=== PATIENT | male | born 2000 | race Caucasian/White ===

== ENCOUNTER 2018-07-13 19:57 | Emergency (ER) | payer MEDICAID ==
[~2018-07-13] VITALS: Ht 144.8 cm; Wt 54.4 kg
[2018-07-13 20:14] VITALS: BP 124/83
== END 2018-07-13 21:51 | disposition home or self-care (01) ==
LOC: ER 19:57
DX: H10.32 Unspecified acute conjunctivitis, left eye (principal)
CPT/HCPCS: 99283; A4606; Z7610

== ENCOUNTER 2018-10-05 21:10 | Emergency (ER) | payer MEDICAID ==
[~2018-10-05] VITALS: Ht 165.1 cm; Wt 57.2 kg
[2018-10-05 21:22] VITALS: BP 128/77
[2018-10-05] MEDS ORDERED: FLUORESCEIN SODIUM OPHTH 1 EA STRIP ONE (21:35)
[2018-10-05] MEDS ORDERED: TETRACAINE HCL/PF 0.5% UD 2 ML BOTTLE ONE (21:36)
--- NOTE | 2018-10-05 21:49 | NUR ---
B QIETER, PAC IS AT THE BEDSIDE TRYING TO REMOVE A FOREIGN BODY FROM LEFT INNER EYE.
[2018-10-05] MEDS ORDERED: TETRACAINE HCL/PF 0.5% UD 2 ML BOTTLE LEFTEYE ONE (22:00)
[2018-10-05] MEDS ORDERED: FLUORESCEIN SODIUM OPHTH 1 EA STRIP OP ONE (22:00)
--- NOTE | 2018-10-05 22:03 | NUR ---
PT STATED THAT HE NORMALLY IS NOT ABLE TO SEE LONG DISTANCES OUT OF HIS LEFT EYE.
--- NOTE | 2018-10-05 22:14 | NUR ---
Patient discharged to home in stable condition. Written and verbal after care instructions given. Patient verbalizes understanding of instruction AND RX. PT AMBULATED OUT WITH A STEADY GAIT. SIMEON MCINTOSH TRANSLATED FOR PT. PT'S VSS. NAD NOTED.
== END 2018-10-05 22:18 | disposition home or self-care (01) ==
LOC: ER 21:12
DX: H10.32 Unspecified acute conjunctivitis, left eye (principal)

== ENCOUNTER 2019-05-10 22:45 | Emergency (ER) | payer MEDICAID ==
[~2019-05-10] VITALS: Ht 162.6 cm; Wt 56.2 kg
[2019-05-10 23:05] VITALS: BP 131/98
[2019-05-10] MEDS ORDERED: FLUORESCEIN SODIUM OPHTH 1 EA STRIP ONE (23:58)
== END 2019-05-11 01:00 | disposition home or self-care (01) ==
LOC: ER 22:46
DX: T15.01XA Foreign body in cornea, right eye, initial encounter (principal); Z98.890 Other specified postprocedural states; W45.8XXA Other foreign body or object entering through skin, initial encounter; Y93.89 Activity, other specified; Y92.89 Other specified places as the place of occurrence of the external cause; Y99.8 Other external cause status

== ENCOUNTER 2021-10-17 20:52 | Emergency (ER) | payer MEDICAID, OTHER ==
[~2021-10-17] VITALS: Ht 152.4 cm; Wt 56.7 kg
--- NOTE | 2021-10-17 21:15 | NUR ---
TO ER BED 4. BIBS C/O R FOREARM LAC, ABOUT 1 1/2 IN, OPEN TO AIR, NO ACTIVE BLEEDING NOTED. PT STATES "CUT HIMSELF WITH METAL WHILE PLAYING". 07/26 ON P/S . LAST TDAP UNK. AWAITING MD STEINER
[2021-10-17] MEDS ORDERED: LIDOCAINE 1%-EPI 1:100,000 20 ML VIAL TP ONE (21:30)
[2021-10-17] MEDS ORDERED: BACI/NEOM/POLY B OINT PKT 1 UDPKT PACKET TP ONE (21:30)
[2021-10-17] MEDS ORDERED: TDAP [DIPH/PERTUSSIS/TET] 0.5 ML VIAL IM ONE ×2 (21:30→21:56)
--- NOTE | 2021-10-17 21:40 | NUR ---
BATTERY FILLER AT BEDSIDE FOR WOUND CLEANING
[2021-10-17] MEDS ORDERED: BACI/NEOM/POLY B OINT PKT 1 UDPKT PACKET ONE (21:55)
[2021-10-17] MEDS ORDERED: LIDOCAINE 1%-EPI 1:100,000 20 ML VIAL ONE (21:56)
[2021-10-17 22:30] VITALS: BP 130/94
== END 2021-10-17 22:30 | disposition home or self-care (01) ==
LOC: ER 21:04
DX: S51.811A Laceration without foreign body of right forearm, initial encounter (principal); W26.8XXA Contact with other sharp object(s), not elsewhere classified, initial encounter; Y93.89 Activity, other specified; Y92.89 Other specified places as the place of occurrence of the external cause; Y99.8 Other external cause status
CPT/HCPCS: 12001; 90471; 90715; 99283; A6403; J3490